=== PATIENT | female | born 1965 | race Two or more races ===

== ENCOUNTER 2021-06-23 22:06 | Inpatient (IN) | payer MEDICAID, OTHER ==
[~2021-06-23] VITALS: Ht 157.5 cm; Wt 49.2 kg
[2021-06-23] MEDS ORDERED: NITROGLYCERIN 0.4 MG SL TAB SL ONE (23:00)
[2021-06-23 23:11] LABS: Basophils # (auto) 0.1 10 ^3/uL (0-0.2); Eosinophils # (auto) 0.1 10 ^3/uL (0-0.8); Eosinophils % (auto) 1.7 % (0.0-7.0); Hematocrit 31.2 % (36.0-46.0); Hemoglobin 10.6 g/dL (12.2-16.2); Lymphocytes # (auto) 0.7 10 ^3/uL (0.4-5.4); Lymphocytes % (auto) 12.6 % (10.0-50.0); Mean Corpuscular Hgb Conc. 33.9 g/dL (32.0-36.0); Mean Corpuscular Volume 94.4 fL (80.0-100.0); Monocytes # (auto) 0.4 10 ^3/uL (0-1.3); Monocytes % (auto) 6.4 % (0.0-12.0); Neutrophils # (auto) 4.3 10 ^3/uL (1.6-8.6); Neutrophils % (auto) 78.3 % (37.0-80.0); Nucleated Red Blood Cells % 0.1 %; Red Cell Distribution Width 16.6 % (11.8-14.3); White Blood Cell 5.4 10^3/uL (4.4-10.8)
[2021-06-23 23:29] LABS: Potassium 4.9 mmol/L (3.5-5.1)
[2021-06-23 23:33] LABS: Albumin 3.4 g/dL (3.4-5.0); BUN/Creatinine Ratio 5.1; Calcium 8.3 mg/dL (8.5-10.1)
[2021-06-23 23:35] LABS: Bilirubin, Total 0.7 mg/dL (0.2-1.0); Total Protein 7.2 g/dL (6.4-8.2)
[2021-06-24] MEDS ORDERED: CLOPIDOGREL 300 MG TAB PO ONE (01:00)
[2021-06-24] MEDS ORDERED: HEPARIN DRIP/D5W 100UNITS/ML 250 ML IV SCH (01:00)
[2021-06-24] MEDS ORDERED: ASPirin 81 mg TAB PO ONE (01:00)
[2021-06-24 02:10] LABS: INR 1.18 (0.9-1.15); Partial Thromboplastin Time 32.1 sec (23.6-33.0)
[2021-06-24] MEDS ORDERED: LABETALOL HCL 5 MG/ML 4ML SYRINGE IV ONE (02:15)
[2021-06-24] MEDS ORDERED: ACETAMINOPHEN 325 MG TAB PO PRN (03:45)
[2021-06-24] MEDS ORDERED: hydrALAZINE HCL 10 MG TAB PO PRN (03:45)
[2021-06-24] MEDS ORDERED: MORPHINE SULFATE INJ 2 MG/ml SYRG IV PRN (03:45)
[2021-06-24] MEDS ORDERED: ONDANSETRON HCL 4 MG/2 ML VIAL IV PRN (03:45)
[2021-06-24] MEDS ORDERED: NITROGLYCERIN 0.4 MG SL TAB SL PRN (03:45)
[2021-06-24] MEDS ORDERED: amLODIPine BESYLATE 5 MG TAB PO SCH (03:45)
[2021-06-24] MEDS ORDERED: METOPROLOL TARTRATE 25 MG TAB PO SCH (03:45)
[2021-06-24] MEDS ORDERED: METOPROLOL TARTRATE 1MG/1ML-5ML VIAL IV PRN (03:45)
[2021-06-24] MEDS: SODIUM CHLOR 0.9% PF (SALINE LOCK) 10ML VIAL/SYR IV SCH ×3 (05:39→21:07)
[2021-06-24] MEDS: HYDROcodone-ACET 5/325MG TAB PO PRN (05:40)
[2021-06-24] MEDS ORDERED: ALBUTEROL SULF HFA 90MCG INH 200DOSE IN SCH (06:00)
[2021-06-24] MEDS ORDERED: cloNIDine HCL 0.1 MG TAB PO ONE (06:45)
[2021-06-24] MEDS ORDERED: cloNIDine HCL 0.1 MG TAB PO PRN (06:45)
[2021-06-24] MEDS: hydrALAZINE HCL 20 MG/ML VL IV PRN (08:08)
[2021-06-24] MEDS: ASPirin-EC 81 mg tab PO SCH (09:55)
[2021-06-24] MEDS: FAMOTIDINE 20 MG TAB PO SCH ×2 (09:56→21:20)
[2021-06-24 10:00] VITALS: BP 186/79
[2021-06-24] MEDS ORDERED: HEPARIN SODIUM (PORCINE) 5000 UNITS/ML 1ML VIAL SC SCH (10:00)
[2021-06-24 12:51] LABS: Basophils # (auto) 0.1 10 ^3/uL (0-0.2); Basophils % (auto) 1.3 % (0.0-2.0); Eosinophils # (auto) 0.1 10 ^3/uL (0-0.8); Eosinophils % (auto) 2.1 % (0.0-7.0); Hematocrit 30.5 % (36.0-46.0); Hemoglobin 10.1 g/dL (12.2-16.2); Lymphocytes # (auto) 0.8 10 ^3/uL (0.4-5.4); Lymphocytes % (auto) 17.5 % (10.0-50.0); Mean Corpuscular Hemoglobin 31.4 pg (28.0-32.0); Mean Corpuscular Volume 95.3 fL (80.0-100.0); Monocytes # (auto) 0.5 10 ^3/uL (0-1.3); Monocytes % (auto) 9.8 % (0.0-12.0); Neutrophils # (auto) 3.2 10 ^3/uL (1.6-8.6); Neutrophils % (auto) 69.3 % (37.0-80.0); Nucleated Red Blood Cells % 0.1 %; White Blood Cell 4.7 10^3/uL (4.4-10.8)
[2021-06-24 13:04] VITALS: BP 189/71
[2021-06-24] MEDS: NIFEdipine ER 30 MG TAB PO SCH (13:04)
[2021-06-24] MEDS: METOPROLOL TARTRATE 50 MG TAB PO SCH ×2 (13:05→23:25)
[2021-06-24 13:07] LABS: INR 1.17 (0.9-1.15); Partial Thromboplastin Time 32.6 sec (23.6-33.0)
[2021-06-24 13:10] LABS: BUN/Creatinine Ratio 4.9; Calcium 8.1 mg/dL (8.5-10.1); Potassium 4.8 mmol/L (3.5-5.1)
[2021-06-24] MEDS ORDERED: LOSA-39 PO (14:04)
[2021-06-24] MEDS ORDERED: NIFE90TA49 PO (14:04)
[2021-06-24] MEDS ORDERED: TERA10CA36 PO (14:04)
[2021-06-24] MEDS ORDERED: CINA30TA2 PO (14:05)
[2021-06-24] MEDS ORDERED: CLON0.1T PO (14:05)
[2021-06-24] MEDS ORDERED: FERR1TAB17 PO (14:05)
[2021-06-24] MEDS: cloNIDine HCL 0.1 MG TAB PO SCH ×2 (14:14→23:24)
[2021-06-24] MEDS: hydrALAZINE HCL 25 MG TAB PO SCH (14:15)
[2021-06-24 16:56] VITALS: BP 178/75
[2021-06-24] MEDS: InsuLIN REG 1unit/0.01ml Soln (100units/ml) SC SCH ×2 (17:00→21:28)
[2021-06-24] MEDS: ACCU-CHEK COMFORT CURVE STRIP VI SCH ×2 (17:00→21:21)
[2021-06-24] MEDS ORDERED: DEXTROSE (50%) 50ML SYRG IV PRN (18:00)
[2021-06-24] MEDS ORDERED: LOSARTAN POTASSIUM 50 MG TAB PO SCH (21:00)
[2021-06-24] MEDS: HEPARIN SODIUM (PORCINE) 5000 UNITS/ML 1ML VIAL SC SCH (21:28)
[2021-06-24] MEDS ORDERED: ATORVASTATIN 20 MG TAB PO SCH (22:00)
[2021-06-25] MEDS: hydrALAZINE HCL 25 MG TAB PO SCH ×3 (01:02→14:09)
[2021-06-25] MEDS: SODIUM CHLOR 0.9% PF (SALINE LOCK) 10ML VIAL/SYR IV SCH ×2 (05:51→13:30)
[2021-06-25] MEDS: cloNIDine HCL 0.1 MG TAB PO SCH ×2 (05:52→14:10)
[2021-06-25] MEDS: HYDROcodone-ACET 5/325MG TAB PO PRN ×2 (05:58→12:46)
[2021-06-25] MEDS: ACCU-CHEK COMFORT CURVE STRIP VI SCH ×2 (05:59→12:00)
[2021-06-25] MEDS: InsuLIN REG 1unit/0.01ml Soln (100units/ml) SC SCH ×2 (05:59→12:00)
[2021-06-25 06:27] LABS: Basophils # (auto) 0.1 10 ^3/uL (0-0.2); Basophils % (auto) 2.3 % (0.0-2.0); Eosinophils # (auto) 0.1 10 ^3/uL (0-0.8); Eosinophils % (auto) 3.1 % (0.0-7.0); Hematocrit 28.8 % (36.0-46.0); Lymphocytes % (auto) 22.4 % (10.0-50.0); Mean Corpuscular Hemoglobin 32.4 pg (28.0-32.0); Mean Corpuscular Hgb Conc. 34.3 g/dL (32.0-36.0); Mean Corpuscular Volume 94.5 fL (80.0-100.0); Monocytes # (auto) 0.4 10 ^3/uL (0-1.3); Monocytes % (auto) 8.5 % (0.0-12.0); Neutrophils # (auto) 2.8 10 ^3/uL (1.6-8.6); Neutrophils % (auto) 63.7 % (37.0-80.0); Red Blood Cells 3.05 10^6/uL (4.0-5.20); Red Cell Distribution Width 16.2 % (11.8-14.3); White Blood Cell 4.3 10^3/uL (4.4-10.8)
[2021-06-25 06:39] LABS: Hemoglobin 9.9 g/dL (12.2-16.2)
[2021-06-25 06:40] LABS: BUN/Creatinine Ratio 5.4; Calcium 8.7 mg/dL (8.5-10.1)
[2021-06-25 06:56] LABS: % Iron Saturation 30.7 % (15-50)
[2021-06-25] MEDS ORDERED: SODIUM CHL 0.9% 1000 ML BAG XX ONE (07:00)
[2021-06-25 07:51] LABS: Potassium 5.7 mmol/L (3.5-5.1)
[2021-06-25 08:10] VITALS: BP 149/61
[2021-06-25] MEDS: FAMOTIDINE 20 MG TAB PO SCH (09:38)
[2021-06-25] MEDS: ASPirin-EC 81 mg tab PO SCH (09:39)
[2021-06-25] MEDS: HEPARIN SODIUM (PORCINE) 5000 UNITS/ML 1ML VIAL SC SCH (09:40)
[2021-06-25] MEDS: METOPROLOL TARTRATE 50 MG TAB PO SCH (09:40)
[2021-06-25] MEDS: NIFEdipine ER 30 MG TAB PO SCH (10:26)
[2021-06-25] MEDS: hydrALAZINE HCL 20 MG/ML VL IV PRN (11:24)
[2021-06-25 12:10] VITALS: BP 209/87
[2021-06-25] MEDS ORDERED: CLON0.1T PO (12:35)
[2021-06-25] MEDS ORDERED: MET50T PO (12:35)
[2021-06-25] MEDS ORDERED: HYDR-4298 PO (12:35)
[2021-06-25 14:31] VITALS: BP 147/58
== END 2021-06-25 16:00 | disposition home or self-care (01) | DRG 199 ==
LOC: EDBD 22:06 → ER 22:06 → TELE 06-24 04:06 → TELE-EAST 06-24 09:19
PROVIDERS: ADMIT Nurse Practitioner Family; ATTEND Nurse Practitioner Family
PROC: 5A1D70Z Performance of Urinary Filtration, Intermittent, Less than 6 Hours Per Day (ICD-10-PCS; principal; 2021-06-25)
DX: I16.0 Hypertensive urgency (principal); I24.9 Acute ischemic heart disease, unspecified; N18.6 End stage renal disease; I13.2 Hypertensive heart and chronic kidney disease with heart failure and with stage 5 chronic kidney disease, or end stage renal disease; I50.9 Heart failure, unspecified; Z20.822 Contact with and (suspected) exposure to COVID-19; Z99.2 Dependence on renal dialysis; Z91.15 Patient's noncompliance with renal dialysis
CPT/HCPCS: 36415; 71045; 80048; 80053; 82728; 82962; 83540; 83550; 83880; 84484; 85025; 85610; 85730; 90935; 93005; 93306; 96365; 96375; G0378; J1642; J3490

== ENCOUNTER 2024-06-19 22:44 | Emergency (ER) | payer MEDICAID ==
[~2024-06-19] VITALS: Ht 157.5 cm; Wt 59.5 kg
[~2024-06-19 22:44] MED LIST: CINA30TA2 PO; CLON0.1T PO; FERR1TAB17 PO; HYDR100T10 PO; LOSA-535 PO; MET50T PO; NIFE90TA75 PO; TERA10CA36 PO
[2024-06-19 23:00] VITALS: BP 162/91; PULSE 98; RESP 18; TEMP 98.4; O2SAT 98
--- NOTE | 2024-06-20 | DVH ---
CLINICAL INDICATION: fall TECHNIQUE: XY R 1ST FINGER XRAY Comparison: None FINDINGS/IMPRESSION: : Mildly displaced obliquely oriented fracture of the radial aspect of the base of the 1st proximal pha lanx. Normal mineralization alignment. Joint spaces are preserved. Diffuse Calcified athero sclerosis. Soft tissue swelling about the 1st digit.
--- NOTE | 2024-06-20 | DVH ---
CLINICAL INDICATION: fall TECHNIQUE: XY R FOREARM XRAY Comparison: None FINDINGS/IMPRESSION: : There is no evidence of acute fracture or dislocation. Diffuse calcified atherosclerosis.
--- NOTE | 2024-06-20 00:02 | DVH ---
CLINICAL INDICATION: fall TECHNIQUE: XY R KNEE 3V XRAY Comparison: None FINDINGS/IMPRESSION: : There is no evidence of acute fracture or dislocation. Superior and inferior patellar enthesophytes. Slight bony demineralization. Normal alignment. Calcified athero sclerosis.
--- NOTE | 2024-06-20 00:55 | ED.PDOC ---
Musculoskeletal HPI Comments 50-year-old female complaining of right arm pain right knee pain right thumb pain. Patient states she was walking when she tripped on cement falling to her right side. No loss of consciousness. Did not hit her head. Injury happened approximate 3:00 p.m. today. Chief Complaint: Fall Injury Time Seen by MD: 23:12 Reviewed Notes: Nurses Notes Allergies: Coded Allergies: NO KNOWN ALLERGIES (Unverified , 06/23/21) Home Meds Active Scripts Hydralazine Hcl (Hydralazine Hcl) 100 Mg Tab, 1 TAB PO TID, #90 TAB Prov:TODD KHAN MD 06/25/21 Metoprolol Tartrate (LOPRESSOR TABLET) 50 Mg Tb, 50 MG PO BID, #90 TAB Prov:TODD KHAN MD 06/25/21 Clonidine Hydrochloride (Clonidine Hcl) 0.1 Mg Tab, 0.2 MG PO TID, #90 TAB Prov:TODD KHAN MD 06/25/21 Reported Medications Cinacalcet Hydrochloride (Sensipar) 30 Mg Tab, 60 MG PO DAILY, TAB 06/24/21 Ferric Citrate (Auryxia) 210 Mg Tab, 210 MG PO DAILY, TAB 06/24/21 Losartan Potassium (Losartan Potassium) 100 Mg Tab, 100 MG PO DAILY for 30 Days, MG 06/24/21 Terazosin Hcl (Terazosin Hcl) 10 Mg Cap, 10 MG PO HS for 30 Days, MG 06/24/21 Nifedipine (Nifedipine Er) 90 Mg Tab, 1 TAB PO HS, #30 TAB 5 Refills 06/24/21 Information Source: Patient Mode of Arrival: Ambulatory Past Medical History PAST MEDICAL HISTORY: HTN Surgical History: Denies all surgeries CRACKER OFF History: No Pertinent CRACKER OFF History Family History Family History: No family hx of Heart dante, No family hx of HTN Social History Alcohol: Denies ETOH Use Drugs: Denies Drug Use Constitutional: denies: chills, diaphoresis, fatigue, fever, malaise, sweats, weakness, others EENTM: denies: blurred vision, double vision, ear bleeding, ear discharge, ear drainage, ear pain, ear ringing, eye pain, eye redness, hearing loss, mouth pain, mouth swelling, nasal discharge, nose bleeding, nose congestion, nose pain, photophobia, tearing, throat pain, throat swelling, voice changes, others Respiratory: denies: cough, hemoptysis, orthopnea, SOB at rest, shortness of breath, SOB with excertion, stridor, wheezing, others Cardiovascular: denies: chest pain, dizzy spells, diaphoresis, Dyspnea on exertion, edema, irregular heart beat, left arm pain, lightheadedness, palpitations, PND, syncope, others Gastrointestinal: denies: abdomen distended, abdominal pain, blood streaked bowels, constipated, diarrhea, dysphagia, difficulty swallowing, hematemesis, melena, nausea, poor appetite, poor fluid intake, rectal bleeding, rectal pain, vomiting, others Genitourinary: denies: abnormal vagina bleeding, burning, dyspareunia, dysuria, flank pain, frequency, hematuria, incontinence, pain, , vagina discharge, urgency, others Neurological: denies: dizziness, fainting, headache, left sided numbness, left sided weakness, numbness, paresthesia, pre-existing deficit, right sided numbness, right sided weakness, seizure, speech problems, tingling, tremors, w eakness, others Musculoskeletal: reports: joint swelling, muscle pain, muscle stiffness; denies: back pain, gout, joint pain, neck pain, others Integumetry: denies: bruises, change in color, change in hair/nails, dryness, laceration, lesions, lumps, rash, wounds, others Allergic/Immunocompromised: denies: Difficulty Healing, Frequent Infections, Hives, Itching, others Physical Exam General Appearance: No Apparent Distress, Normal HEENT: Normal ENT Inspection, Pharynx Normal, TMs Normal Neck: Full Range of Motion, Non-Tender, Normal, Normal Inspection Respiratory: Chest Non-Tender, Lungs Clear, No Accessory Muscle Use, No Respiratory Distress, Normal Breath Sounds Cardiovascular: No Edema, No JVD, No Murmur, No Gallop, Normal Peripheral Pulses, Regular Rate/Rhythm Breast Exam: Deferred Gastrointestinal: No Organomegaly, Non Tender, No Pulsatile Mass, Normal Bowel Sounds, Soft Genitalia: Deferred Pelvic: Deferred Rectal: Deferred Extremities: No calf tenderness, Normal capillary refill, Normal inspection, Normal range of motion, Non-tender, No pedal edema Musculoskeletal : Location: Right Extremity Location: Arm (Full range of motion, no obvious crepitus.), Knee (Positive swelling positive erythemic), Thumb (Positive swelling positive redness negative deformity) Apperance: Normal Neurologic: Alert, internal recruiter II-XII nml as Tested, No Motor Deficits, Normal Affect, Normal Mood, No Sensory Deficits Cerebellar Function: Normal Reflexes: Normal Skin: Dry, Normal Color, Warm Lymphatic: No Adenopathy Was a procedure done? Was a procedure done?: No Differential Diagnosis EXT Differential Diagnosis: Fracture, Sprain, Dislocation X-Ray, Labs, Meds, VS Vital Signs Date Time Temp Pulse Resp B/P (MAP) Pulse Ox O2 Delivery O2 Flow Rate FiO2 06/19/24 23:00 98.4 98 18 162/91 (114) 98 98.4 X-Ray, Labs, Meds, VS Comment Imaging: X-rays and CT scans were reviewed and interpreted by this provider, imaging shows infection of the right thumb. Pending radiology review. Laboratory: Labs reviewed and interpreted by this provider. No significant abnormalities noted. Patient has prior medical visits reviewed. Med reconciliation performed Vital signs reviewed Time of 1ST Reevaluation: 00:54 Reevaluation 1ST: Improved Patient Education/Counseling: Diagnosis, Treatment, Need For Follow Up (Follow up with mechanical integrity specialist next available appointment) Family Education/Counseling: Diagnosis Departure 1 Departure Time of Disposition: 00:53 Impression: Primary Impression: Right forearm pain Additional Impressions: Fracture of thumb, right, closed Qualified Codes: S62.514A - Nondisplaced fracture of proximal phalanx of right thumb, initial encounter for closed fracture Contusion of right knee Qualified Codes: S80.01XA - Contusion of right knee, initial encounter Disposition: HOME / SELF CARE / HOMELESS Condition: Fair Discharged With: Self Critical Care Note Critical Care Time?: No Stability Stability form required: No Heart Score Heart Score: Heart Score Response (Comments) Value History N/A 0 EKG N/A 0 Age N/A 0 Risk Factors N/A 0 Troponin N/A 0 Total 0 DARIO TINAJERO June 20, 2024 00:55
[2024-06-20] MEDS ORDERED: IBUP-1454 PO (01:54)
== END 2024-06-20 02:00 | disposition home or self-care (01) ==
LOC: ER 22:44
DX: S62.511A Displaced fracture of proximal phalanx of right thumb, initial encounter for closed fracture (principal); S80.01XA Contusion of right knee, initial encounter; M79.631 Pain in right forearm; I10 Essential (primary) hypertension; Z79.899 Other long term (current) drug therapy; W01.0XXA Fall on same level from slipping, tripping and stumbling without subsequent striking against object, initial encounter; Y93.01 Activity, walking, marching and hiking; Y92.89 Other specified places as the place of occurrence of the external cause; Y99.8 Other external cause status
CPT/HCPCS: 73090; 73140; 73562

== ENCOUNTER 2024-12-22 14:47 | Emergency (ER) | payer MEDICAID ==
[~2024-12-22] VITALS: Ht 157.5 cm; Wt 54.8 kg
[~2024-12-22 14:47] MED LIST changes: +IBUP-1454 PO
--- NOTE | 2024-12-22 15:46 | ED.PDOC ---
History of Present Illness HPI Comments A 59 YEAR OLD FEMALE PRESENTS TO THE ED WITH COMPLAINT OF WOUND RECHECK. THE PATIENT STATES SHE SUSTAINED A WOUND ON HER RIGHT FOOT 20 DAYS AGO AFTER A METAL SIGN FELL ON TOP OF IT. PATIENT REPORTS THE WOUND IS HEALING, BUT NOTES SHE BEGAN TO EXPERIENCE MILD REDNESS AND INCREASED PAIN TO THE AREA OVER THE LAST 3 DAYS. PATIENT IS REQUESTING THAT THIS WOUND BE CHECKED FOR POSSIBLE INFECTION SHE STATES SHE HAS A HISTORY OF DIABETES. PATIENT DENIES FEVER, CHILLS, SHORTNESS OF BREATH, CHEST PAIN, ABDOMINAL PAIN, NAUSEA, VOMITING, HEADACHE, OR OTHER COMPLAINTS. NO OTHER SYMPTOMS OR MODIFYING FACTORS AT THIS TIME. PATIENT IS ALERT, ORIENTED X 4, AND HAS STEADY GAIT. Chief Complaint: Wound Check Time Seen by MD: 14:56 Reviewed Notes: Nurses Notes, Medications, Allergies Allergies: Coded Allergies: NO KNOWN ALLERGIES (Unverified , 06/23/21) Home Meds Active Scripts Naproxen (Naproxen) 500 Mg Tab, 500 MG PO BID, #30 TAB Prov:KERON MIRELES 12/22/24 Cephalexin Monohydrate (Cephalexin) 500 Mg Cap, 1 CAP PO TID, #30 CAP Prov:KERON MIRELES 12/22/24 Ibuprofen (Ibuprofen) 600 Mg Tab, 1 TAB PO TID, #30 TAB Prov:DARIO GALLO 06/20/24 Hydralazine Hcl (Hydralazine Hcl) 100 Mg Tab, 1 TAB PO TID, #90 TAB Prov:TODD KHAN MD 06/25/21 Metoprolol Tartrate (LOPRESSOR TABLET) 50 Mg Tb, 50 MG PO BID, #90 TAB Prov:TODD KHAN MD 06/25/21 Clonidine Hydrochloride (Clonidine Hcl) 0.1 Mg Tab, 0.2 MG PO TID, #90 TAB Prov:TODD KHAN MD 06/25/21 Reported Medications Cinacalcet Hydrochloride (Sensipar) 30 Mg Tab, 60 MG PO DAILY, TAB 06/24/21 Ferric Citrate (Auryxia) 210 Mg Tab, 210 MG PO DAILY, TAB 06/24/21 Losartan Potassium (Losartan Potassium) 100 Mg Tab, 100 MG PO DAILY for 30 Days, MG 06/24/21 Terazosin Hcl (Terazosin Hcl) 10 Mg Cap, 10 MG PO HS for 30 Days, MG 06/24/21 Nifedipine (Nifedipine Er) 90 Mg Tab, 1 TAB PO HS, #30 TAB 5 Refills 06/24/21 Information Source: Patient Mode of Arrival: Ambulatory Severity: Moderate Timing: Days Duration: Since onset, Days Prehospital treatment: None Medication Refill: For: Other (WOUND RECHECKED RIGHT FOOT) Past Medical History PAST MEDICAL HISTORY: DM, HTN Surgical History: Denies all surgeries COMPRESSED GAS EQUIPMENT MECHANIC History: No Pertinent COMPRESSED GAS EQUIPMENT MECHANIC History Family History Family History: No family hx of Heart dante, No family hx of HTN Social History Smoker: Non-Smoker Alcohol: Denies ETOH Use Drugs: Denies Drug Use Lives In: Home Constitutional: denies: chills, diaphoresis, fatigue, fever, malaise, sweats, weakness, others EENTM: denies: blurred vision, double vision, ear bleeding, ear discharge, ear drainage, ear pain, ear ringing, eye pain, eye redness, hearing loss, mouth pain, mouth swelling, nasal discharge, nose bleeding, nose congestion, nose pain, photophobia, tearing, throat pain, throat swelling, voice changes, others Respiratory: denies: cough, hemoptysis, orthopnea, SOB at rest, shortness of breath, SOB with excertion, stridor, wheezing, others Cardiovascular: denies: chest pain, dizzy spells, diaphoresis, Dyspnea on exertion, edema, irregular heart beat, left arm pain, lightheadedness, palpitations, PND, syncope, others Gastrointestinal: denies: abdomen distended, abdominal pain, blood streaked bowels, constipated, diarrhea, dysphagia, difficulty swallowing, hematemesis, melena, nausea, poor appetite, poor fluid intake, rectal bleeding, rectal pain, vomiting, others Genitourinary: denies: abnormal vagina bleeding, burning, dyspareunia, dysuria, flank pain, frequency, hematuria, incontinence, pain, , vagina discharge, urgency, others Neurological: denies: dizziness, fainting, headache, left sided numbness, left sided weakness, numbness, paresthesia, pre-existing deficit, right sided numbness, right sided weakness, seizure, speech problems, tingling, tremors, weakness, others Musculoskeletal: denies: back pain, gout, joint pain, joint swelling, muscle pain, muscle stiffness, neck pain, others Integumetry: reports: wounds, others (WOUND RECHECKED OF RIGHT FOOT); denies: bruises, change in color, change in hair/nails, dryness, laceration, lesions, lumps, rash Allergic/Immunocompromised: denies: Difficulty Healing, Frequent Infections, Hives, Itching, others Hematologic/Lymphatic: denies: anemia, blood clots, easy bleeding, easy bruising, swollen glands, others Endocrine: denies: excessive hunger, excessive sweating, excessive thirst, excessive urination, flushing, intolerance to cold, intolerance to heat, unexplained weight gain, unexplained weight loss, others Psychiatric: denies: anxiety, bipolar disorder, depression, hopeless, panic disorder, schizophrenia, sleepless, suicidal, others All Other Systems: Reviewed and Negative Physical Exam General Appearance: No Apparent Distress, Normal HEENT: Normal ENT Inspection, PERRL/EOMI, Pharynx Normal, TMs Normal Neck: Full Range of Motion, Non-Tender, Normal, Normal Inspection Respiratory: Chest Non-Tender, Lungs Clear, No Accessory Muscle Use, No Respiratory Distress, Normal Breath Sounds Cardiovascular: No Edema, No JVD, No Murmur, No Gallop, Normal Peripheral Pulses, Regular Rate/Rhythm Breast Exam: Deferred Gastrointestinal: No Organomegaly, Non Tender, No Pulsatile Mass, Normal Bowel Sounds, Soft Genitalia: Deferred Pelvic: Deferred Rectal: Deferred Extremities: No calf tenderness, Normal capillary refill, Normal range of motion, No pedal edema, Tender (WITH DRY WOUND ON RIGHT ANTERIOR ANKLE AND POST INNER LOWER LEG, NO BONY TENDERNESS, SWELLING AND DEFORMITY. ) Musculoskeletal : Apperance: Normal Neurologic: Alert, corporate treasurer II-XII nml as Tested, No Motor Deficits, Normal Affect, Normal Mood, No Sensory Deficits Cerebellar Function: Normal Reflexes: Normal Skin: Dry, Warm, Wounds (DRY WOUND WITH LOCALIZED REDNESS ON RIGHT ANTERIOR ANKLE, NO PUS DRAINAGE. HEALING WOUND ON RIGHT INNER LOWER LEG. ) Peripheral Pulses: 2+ carotid (R), 2+ carotid (L), 2+ dorsalis pedis (R), 2+ dorsalis pedis (L) Lymphatic: No Adenopathy Was a procedure done? Was a procedure done?: No Differential Dx Considerations may include: WOUND RECHECKED, WOUND INFECTION X-Ray, Labs, Meds, VS Vital Signs Date Time Temp Pulse Resp B/P (MAP) Pulse Ox O2 Delivery O2 Flow Rate FiO2 12/22/24 14:50 99.2 87 18 167/98 99 99.2 X-Ray, Labs, Meds, VS Comment EXTERNAL MEDICAL RECORDS REVIEWED: [NONE] INDEPENDENT HISTORIANS: [NONE] SOCIAL DETERMINANTS OF HEALTH: [NONE] LABS ORDERED: NONE REVIEWED AND INTERPRETED RESULTS: NONE IMAGING ORDERED: NONE TREATMENTS ORDERED: TETANUS 0.5 ML IM AND ROCEPHIN 1GM IM PROCEDURES PERFORMED: NONE CRITICAL CARE TIME: NONE I HAVE DISCUSSED THE PATIENT WITH THE ATTENDING PHYSICIAN DR. SANCHES AND HE AGREES WITH THE PATIENT'S PLAN OF CARE AND DISPOSITION. BASED ON HISTORY OF PRESENT ILLNESS, AND PHYSICAL EXAM, PATIENT WILL BE DISCHARGED HOME. DISCUSSED PLAN FOR DISCHARGE HOME WITH RX [KEFLEX AND NAPROXEN 500MG]. MEDICATION WARNINGS GIVEN. SHARED DECISION MAKING: DISCUSSED WITH PATIENT THAT THEIR WORKUP WAS NORMAL. PATIENT INSTRUCTED TO FOLLOW UP WITH PRIMARY CARE PROVIDER IN 1-2 DAYS FOR RE- EVALUATION OF SYMPTOMS. PATIENT VERBALIZES UNDERSTANDING TO RETURN TO ED FOR NEW OR WORSENING SYMPTOMS OR IF FOLLOW UP WITH PCP CANNOT BE OBTAINED. PATIENT FEELS COMFORTABLE GOING HOME AT THIS TIME. ALL QUESTIONS ADDRESSED AT TIME OF DISCHARGE. Time of 1ST Reevaluation: 16:00 Reevaluation 1ST: Improved Patient Education/Counseling: Diagnosis, Treatment, Need For Follow Up Family Education/Counseling: Diagnosis, Treatment, Need For Follow Up Medical Screening: No EMC Exist At This Time SEPSIS Sepsis Screen Date sepsis recognized/suspect: Dec 22, 2024 Time Sepsis recognized/suspect: 1452 Recent Procedure: No On Antibiotic Therapy: No Respiratory Rate >20: No Heart Rate >90: No Temp<36 C (96.8 F) or >38.3 C: No SBP <90 or MAP <65 mmHG: No New Acute Mental Status Change: No Is the patient on CPAP, BIPAP,: No Physician Orders Ceftriaxone Sodium (Rocephin) (12/22/24 16:00) Tetanus [id number] (Boostrix (12/22/24 16:00) Vital Signs Date Time Temp Pulse Resp B/P (MAP) Pulse Ox O2 Delivery O2 Flow Rate FiO2 12/22/24 14:50 99.2 87 18 167/98 99 99.2 Departure 1 Departure Time of Disposition: 16:00 Impression: Primary Impression: Encounter for wound re-check Disposition: 01 HOME / SELF CARE / HOMELESS Condition: Stable Additional Instructions: FOLLOW-UP WITH PCP IN 1 TO 2 DAYS. TAKE MEDICATIONS PRESCRIBED. RETURN TO ED FOR ANY NEW OR WORSENING SYMPTOMS. e-Prescriptions Naproxen (Naproxen) 500 Mg Tab 500 MG PO BID, #30 TAB Prov: KERON MIRELES 12/22/24 Cephalexin Monohydrate (Cephalexin) 500 Mg Cap 1 CAP PO TID, #30 CAP Prov: KERON MIRELES 12/22/24 Discharged With: Self Critical Care Note Critical Care Time?: No Stability Stability form required: No I personally scribed for KERON MIRELES ([email or web address]) on 12/22/24 at 15:46. Electronically submitted by Kevin Ruiz ([email or web address]). KERON MIRELES Dec 22, 2024 15:46
[2024-12-22] MEDS ORDERED: CEPH500C PO (15:49)
[2024-12-22] MEDS ORDERED: NAPR-746 PO (15:49)
[2024-12-22] MEDS: cefTRIAXone SOD 1,000 MG VL IM ONE (16:01)
[2024-12-22] MEDS: TETANUS-DIPTH-ACEL PERTUSSIS 0.5ML SYR Tdap IM ONE (16:01)
[2024-12-22 16:05] VITALS: BP 108/61; PULSE 81; RESP 18; TEMP 97.9; O2SAT 97
== END 2024-12-22 16:07 | disposition home or self-care (01) ==
LOC: ER 14:47
DX: S90.921D Unspecified superficial injury of right foot, subsequent encounter (principal); I10 Essential (primary) hypertension; E11.9 Type 2 diabetes mellitus without complications; Z48.00 Encounter for change or removal of nonsurgical wound dressing; Z79.899 Other long term (current) drug therapy; X58.XXXD Exposure to other specified factors, subsequent encounter
CPT/HCPCS: 90471; 90715; 96372; 99284; J0696